=== PATIENT | female | born 1950 | race Caucasian/White ===

== ENCOUNTER → 2023-12-15 06:23 | Day surgery (SDC) | payer OTHER, SELFPAY | LOC: GI 06:23 | PROVIDERS: ATTENDING PHYSICIAN Internal Medicine Gastroenterology | DX: D12.0 Benign neoplasm of cecum (principal); D12.3 Benign neoplasm of transverse colon; D12.5 Benign neoplasm of sigmoid colon; K63.5 Polyp of colon; K57.30 Diverticulosis of large intestine without perforation or abscess without bleeding; R19.5 Other fecal abnormalities; Z79.01 Long term (current) use of anticoagulants | CPT/HCPCS: 45385; 88305 ==

== ENCOUNTER → 2025-04-11 13:37 | Outpatient (REF) | payer OTHER, SELFPAY | LOC: HWWDC 13:37 | PROVIDERS: ATTENDING PHYSICIAN Nurse Practitioner Family | DX: M85.80 Other specified disorders of bone density and structure, unspecified site (principal); R79.89 Other specified abnormal findings of blood chemistry; Z12.31 Encounter for screening mammogram for malignant neoplasm of breast | CPT/HCPCS: 76700; 77063; 77067; 77080 ==